=== PATIENT | female | born 1960 | race Caucasian/White ===

== ENCOUNTER 2016-06-22 19:42 | Emergency (ER) | payer MEDICAID, OTHER ==
[~2016-06-22] VITALS: Ht 160 cm; Wt 73.0 kg
[2016-06-22 21:05] VITALS: BP 115/71
[2016-06-22] MEDS ORDERED: CEFTRIAXONE SODIUM 500 MG/VIAL IM ONE (22:00)
[2016-06-22] MEDS ORDERED: SILVER SULFADIAZINE 1% CREAM 25GM TOP ONE (22:45)
== END 2016-06-22 23:06 | disposition home or self-care (01) ==
LOC: ER 19:45
DX: T22.20XA Burn of second degree of shoulder and upper limb, except wrist and hand, unspecified site, initial encounter (principal); T31.0 Burns involving less than 10% of body surface; X08.8XXA Exposure to other specified smoke, fire and flames, initial encounter; Y93.89 Activity, other specified; Y92.098 Other place in other non-institutional residence as the place of occurrence of the external cause; Y99.8 Other external cause status; Z85.3 Personal history of malignant neoplasm of breast; Z90.49 Acquired absence of other specified parts of digestive tract; Z98.890 Other specified postprocedural states
CPT/HCPCS: 16020; 96372; 99284; J0696

== ENCOUNTER 2016-09-09 20:45 | Emergency (ER) | payer OTHER ==
[~2016-09-09] VITALS: Ht 160 cm; Wt 75.0 kg
[2016-09-10] MEDS ORDERED: ONDANSETRON HCL 4MG/2ML VIAL IV STA (01:22)
[2016-09-10] MEDS ORDERED: MORPHINE SULFATE 4 MG/ML CPJ (NOT FOR IM USE) IV STA (01:22)
[2016-09-10] MEDS ORDERED: CLINDAMYCIN 600 MG in DEXTROSE 5% WATER 50 ML IV ONE (01:30)
[2016-09-10] MEDS ORDERED: MORPHINE SULFATE 4 MG/ML CPJ (NOT FOR IM USE) IV ONE (03:30)
[2016-09-10 05:03] VITALS: BP 109/70
== END 2016-09-10 05:09 | disposition home or self-care (01) ==
LOC: ER 20:45
DX: K08.89 Other specified disorders of teeth and supporting structures (principal); R50.9 Fever, unspecified; F17.200 Nicotine dependence, unspecified, uncomplicated; Z85.3 Personal history of malignant neoplasm of breast; Z90.49 Acquired absence of other specified parts of digestive tract
CPT/HCPCS: 96365; 96375; 96376; 99284; J2270; J2405; J3490; Z7610; J7030; J7060

== ENCOUNTER 2019-01-19 23:40 | Emergency (ER) | payer OTHER ==
[~2019-01-19] VITALS: Ht 160 cm; Wt 73.0 kg
[2019-01-20] MEDS ORDERED: KETOROLAC 60MG/2ML VIAL IM STA (02:23)
[2019-01-20] MEDS ORDERED: ACETAMINOPHEN WITH CODEINE 300/30MG TABLET PO SCH (03:55)
[2019-01-20 04:10] VITALS: BP 129/77
== END 2019-01-20 04:12 | disposition home or self-care (01) ==
LOC: ER 23:40
DX: S92.501A Displaced unspecified fracture of right lesser toe(s), initial encounter for closed fracture (principal); S93.601A Unspecified sprain of right foot, initial encounter; Z90.10 Acquired absence of unspecified breast and nipple; X50.1XXA Overexertion from prolonged static or awkward postures, initial encounter; Y93.89 Activity, other specified; Y92.89 Other specified places as the place of occurrence of the external cause; Y99.8 Other external cause status
CPT/HCPCS: 73630; 96372; 99283; J1885; Z7610

== ENCOUNTER 2020-12-18 21:25 | Emergency (ER) | payer MEDICAID, OTHER ==
[~2020-12-18] VITALS: Ht 160 cm; Wt 80.0 kg
[2020-12-18 21:34] VITALS: BP 137/80
[2020-12-18] MEDS ORDERED: IBUPROFEN 600MG TABLET PO ONE (22:00)
[2020-12-18] MEDS ORDERED: IBUP-2029 MT (22:32)
== END 2020-12-18 23:20 | disposition home or self-care (01) ==
LOC: ER 21:25
DX: R07.89 Other chest pain (principal); M54.9 Dorsalgia, unspecified; E78.00 Pure hypercholesterolemia, unspecified; Z90.10 Acquired absence of unspecified breast and nipple; Z86.39 Personal history of other endocrine, nutritional and metabolic disease
CPT/HCPCS: 71045; 93005; 99283